=== PATIENT | male | born 1950 | race Caucasian/White ===

== ENCOUNTER 2017-01-25 22:54 | Emergency (ER) | payer SELFPAY ==
[~2017-01-25] VITALS: Ht 160 cm; Wt 67.4 kg
[2017-01-25 22:56] VITALS: Ht 160 cm; Wt 67.4 kg
[2017-01-25] MEDS ORDERED: ASPIRIN 81 MG TAB PO STA (23:50)
[2017-01-25] MEDS ORDERED: SOD CHLORIDE 0.9% 500 ML IV STA (23:50)
[2017-01-26 00:34] LABS: ADD SCAN DIFF NO
[2017-01-26 00:35] LABS: BASOPHILS % 0.6 % (0.0-2.0); EOSINOPHILS # 0.1 10^3/ul (0.0-0.5); EOSINOPHILS % 1.5 % (0.0-7.0); HEMATOCRIT 38.5 % (42.0-52.0); HEMOGLOBIN 13.4 g/dl (14.0-18.0); LYMPHOCYTES # 2.7 10^3/ul (0.8-2.9); LYMPHOCYTES % 50.7 % (15.0-51.0); MEAN CORPUSCULAR HEMOGLOBIN 30.8 pg (29.0-33.0); MEAN CORPUSCULAR HGB CONC 34.8 g/dl (32.0-37.0); MEAN CORPUSCULAR VOLUME 88.5 fl (82.0-101.0); MEAN PLATELET VOLUME 8.7 fl (7.4-10.4); MONOCYTE # 0.5 10^3/ul (0.3-0.9); PLATELET COUNT 160 10^3/UL (140-415); RED BLOOD COUNT 4.35 10^6/ul (4.70-6.10); RED CELL DISTRIBUTION WIDTH 12.1 % (11.5-14.5); WHITE BLOOD COUNT 5.2 10^3/ul (4.8-10.8)
[2017-01-26 00:45] LABS: INR 1.14; PROTIME 14.6 Sec (12.2-14.2); PT RATIO 1.1
[2017-01-26 00:47] LABS: ALANINE AMINOTRANSFERASE 45 IU/L (13-69); ALBUMIN 4.4 g/dl (3.3-4.9); ALBUMIN/GLOBULIN RATIO 1.04; ALKALINE PHOSPHATASE 203 IU/L (42-121); ANION GAP 14 (8-16); ASPARTATE AMINO TRANSFERASE 46 IU/L (15-46); BILIRUBIN,INDIRECT 0.5 mg/dl (0-1.1); BILIRUBIN,TOTAL 0.5 mg/dl (0.2-1.3); BLOOD UREA NITROGEN 16 mg/dl (7-20); CALCIUM 8.7 mg/dl (8.4-10.2); CARBON DIOXIDE 23 mmol/L (21-31); CHLORIDE 101 mmol/L (97-110); CREATININE 0.54 mg/dl (0.61-1.24); GLUCOSE 240 mg/dl (70-220); POTASSIUM 4.2 mmol/L (3.5-5.1); SODIUM 134 mmol/L (135-144); TOTAL PROTEIN 8.6 g/dl (6.1-8.1)
--- NOTE | 2017-01-26 00:58 | RADRPT ---
PROCEDURE: XR Chest. CLINICAL INDICATION: Chest pain. TECHNIQUE: Single frontal chest x-ray. COMPARISON: None. FINDINGS: The cardiomediastinal silhouette is unremarkable. There is no CHF.. No focal infiltrate is seen. T here is no pleural effusion. There is no pneumothorax. The osseous structures are unremarkable. IMPRESSION: 1. No active disease. RPTAT: HMVK .Garcia Brush MD, MD Date Time Electronically viewed and signed by .Garcia Brush MD, on 01/26/2017 00:57 .K/
[2017-01-26 00:59] LABS: B-TYPE NATRIURETIC PEPTIDE 248 PG/ML (0-125)
[2017-01-26 01:01] LABS: TROPONIN-I < 0.012 ng/ml (0.00-0.12)
[2017-01-26 01:19] LABS: PARTIAL THROMBOPLASTIN TIME 124.3 Sec (25.0-35.0)
--- NOTE | 2017-01-26 01:27 | ERD ---
ER Documentation Chief Complaint Date/Time DATE: 01/26/17 TIME: 01:26 Chief Complaint chest pain x 1 day, leg and face feeling war HPI this is a 66-year-old male comes in with some midsternal reproducible chest wall pain that started about 12 hours ago. Patient denies any trauma. Denies any nausea vomiting. Denies any shortness of breath. Denies any diaphoresis. Denies any other current complaints. Pain is reproducible to the touch. It is worse when he tries to extend his arms and he feels a stretch in his chest. ROS All systems reviewed and are negative except as per history of present illness. Allergies Allergies: Coded Allergies: No Known Allergy (Unverified , 01/25/17) PMhx/Soc History of Surgery: No Anesthesia Reaction: No Hx Neurological Disorder: No Hx Respiratory Disorders: No Hx Cardiac Disorders: No Hx Psychiatric Problems: No Hx Miscellaneous Medical Probl: Yes (diabetes) Hx Alcohol Use: No Hx Substance Use: No Hx Tobacco Use: No Smoking Status: Never smoker Physical Exam Vitals Vital Signs Date Time Temp Pulse Resp B/P Pulse Ox O2 Delivery O2 Flow Rate FiO2 01/25/17 23:57 69 18 117/73 97 Room Air 01/25/17 22:56 98.0 73 17 151/68 98 Physical Exam Const: [] Head: Atraumatic Eyes: Normal Conjunctiva ENT: Normal External Ears, Nose and Mouth. Neck: Full range of motion..~ No meningismus. Resp: Clear to auscultation bilaterally Cardio: Regular rate and rhythm, no murmurs Abd: Soft, non tender, non distended. Normal bowel sounds Skin: No petechiae or rashes Back: No midline or flank tenderness Ext: No cyanosis, or edema Neur: Awake and alert Psych: Normal Mood and Affect Result Diagram: 01/25/17 0004 01/25/17 0004 Results 24 hrs Laboratory Tests Test 01/25/17 00:04 White Blood Count 5.210^3/ul Red Blood Count 4.3510^6/ul Hemoglobin 13.4g/dl Hematocrit 38.5% Mean Corpuscular Volume 88.5fl Mean Corpuscular Hemoglobin 30.8pg Mean Corpuscular Hemoglobin Concent 34.8g/dl Red Cell Distribution Width 12.1% Platelet Count 52986^3/UL Mean Platelet Volume 8.7fl Neutrophils % 38.0% Lymphocytes % 50.7% Monocytes % 9.0% Eosinophils % 1.5% Basophils % 0.6% Nucleated Red Blood Cells % 0.0/100WBC Neutrophils # 2.010^3/ul Lymphocytes # 2.710^3/ul Monocytes # 0.510^3/ul Eosinophils # 0.110^3/ul Basophils # 0.010^3/ul Nucleated Red Blood Cells # 0.010^3/ul Prothrombin Time 14.6Sec Prothrombin Time Ratio 1.1 INR International Normalized Ratio 1.14 Activated Partial Thromboplast Time 124.3Sec Sodium Level 134mmol/L Potassium Level 4.2mmol/L Chloride Level 101mmol/L Carbon Dioxide Level 23mmol/L Anion Gap 14 Blood Urea Nitrogen 16mg/dl Creatinine 0.54mg/dl Glucose Level 240mg/dl Calcium Level 8.7mg/dl Total Bilirubin 0.5mg/dl Direct Bilirubin 0.00mg/dl Indirect Bilirubin 0.5mg/dl Aspartate Amino Transf (AST/SGOT) 46IU/L Alanine Aminotransferase (ALT/SGPT) 45IU/L Alkaline Phosphatase 203IU/L Troponin I < 0.012ng/ml B-Type Natriuretic Peptide 248PG/ML Total Protein 8.6g/dl Albumin 4.4g/dl Globulin 4.20g/dl Albumin/Globulin Ratio 1.04 Current Medications Medications (Trade) Dose Ordered Sig/Joslyn Route PRN Reason Start Time Stop Time Status Last Admin Dose Admin Sodium Chloride (NS) 500 ml @ 500 mls/hr Q1H STAT IV 01/25/17 23:50 01/26/17 00:49 DC 01/26/17 00:17 Aspirin (Aspirin) 162 mg ONCE STAT PO 01/25/17 23:50 01/25/17 23:51 DC 01/26/17 00:17 Procedures/MDM EKG: Rate/Rhythm: Normal Sinus Rhythm QRS, ST, T-waves: No changes consistent w/ acute ischemia Impression: No evidence of ischemia or arrhythmia Chest X-ray 1V Interpreted by me: Soft Tissue: No acute abnormalities Bones: No acute abnormalities Mediastinum/Cardiac Silhouette/Lungs: No acute abnormalities Patient's thoracic symptoms have stabilized while in the department and are stable for outpatient follow up. Exam and work up not consistent w/ ischemia, arrhythmia, PE or dissection. Departure Diagnosis: Primary Impression: Chest pain Chest pain type: unspecified Qualified Code: R07.9 - Chest pain, unspecified type Condition: Stable JONATHAN GEE Jan 26, 2017 01:27
[2017-01-26 02:20] VITALS: BP 127/80; PULSE 65; RESP 18; TEMP 98
== END 2017-01-26 02:20 | disposition home or self-care (01) ==
LOC: E/R 22:54
DX: R07.9 Chest pain, unspecified (principal)
CPT/HCPCS: 36415; 71010; 80053; 83880; 84484; 85025; 85610; 85730; 93005; 99285; J7040